=== PATIENT | female | born 1980 | race African-American/Black ===

== ENCOUNTER 2016-06-20 10:00 | Emergency (ER) | payer SELFPAY ==
[~2016-06-20] VITALS: Ht 170.2 cm; Wt 53.5 kg
[2016-06-20] MEDS ORDERED: HYDROCODONE/APAP 5/325MG 1 EACH TABLET PO ONE (10:30)
[2016-06-20] MEDS ORDERED: BACI/NEOM/POLY B OINT PKT 1 UDPKT PACKET TP ONE (10:30)
[2016-06-20] MEDS ORDERED: HYDROCODONE/APAP 5/325MG 1 EACH TABLET ONE (10:44)
[2016-06-20] MEDS ORDERED: BACI/NEOM/POLY B OINT PKT 1 UDPKT PACKET ONE (10:44)
[2016-06-20 12:09] VITALS: BP 132/74
== END 2016-06-20 12:10 | disposition home or self-care (01) ==
LOC: ER 10:02
DX: S92.912A Unspecified fracture of left toe(s), initial encounter for closed fracture (principal); S80.02XA Contusion of left knee, initial encounter; V89.2XXA Person injured in unspecified motor-vehicle accident, traffic, initial encounter; Y93.89 Activity, other specified; Y92.488 Other paved roadways as the place of occurrence of the external cause; Y99.8 Other external cause status
CPT/HCPCS: 73564-TC; 73630-TC; A4606; Z7610

== ENCOUNTER 2017-08-19 23:24 | Emergency (ER) | payer OTHER ==
[~2017-08-19] VITALS: Ht 170.2 cm; Wt 54.4 kg
[2017-08-19 23:45] VITALS: BP 151/104
[2017-08-19] MEDS ORDERED: ONDANSETRON HCL/PF 4 MG/2 ML VIAL ONE (23:53)
[2017-08-19] MEDS ORDERED: MORPHINE SULFATE INJ 4 MG/ML DISP.SYRIN ONE (23:53)
[2017-08-20] MEDS ORDERED: ONDANSETRON HCL/PF 4 MG/2 ML VIAL IM ONE
[2017-08-20] MEDS ORDERED: MORPHINE SULFATE INJ 2 MG/ML DISP.SYRIN IM ONE
--- NOTE | 2017-08-20 01:38 | NUR ---
[facility] CALLED FOR HIGHER LEVEL OF CARE. NO AVAILABLE BEDS.
--- NOTE | 2017-08-20 01:41 | NUR ---
DR DAVIS PAGED PER DR PORTILLO.
--- NOTE | 2017-08-20 01:41 | NUR ---
CALLED [facility] TALKED WITH ALONA GOLDSTEIN AND SHE STATES THEY DO NOT HAVE AN ORAL MAXCIAL FACIAL SURGEON
[2017-08-20] MEDS ORDERED: CEPHALEXIN MONOHYDRATE 500 MG CAPSULE PO ONE ×2 (02:00→02:04)
[2017-08-20] MEDS ORDERED: LIDOCAINE /MPF 1% VIAL 5 ML VIAL ONE (02:02)
[2017-08-20] MEDS ORDERED: HYDROCODONE/APAP 5/325MG 1 EACH TABLET ONE (02:46)
[2017-08-20] MEDS ORDERED: HYDROCODONE/APAP 5/325MG 1 EACH TABLET PO ONE (03:00)
== END 2017-08-20 03:15 | disposition home or self-care (01) ==
LOC: ER 23:27
DX: S02.609A Fracture of mandible, unspecified, initial encounter for closed fracture (principal); S01.81XA Laceration without foreign body of other part of head, initial encounter; V29.9XXA Motorcycle rider (driver) (passenger) injured in unspecified traffic accident, initial encounter; Y93.89 Activity, other specified; Y92.89 Other specified places as the place of occurrence of the external cause; Y99.8 Other external cause status
CPT/HCPCS: 70450-TC; 70486-TC; A4606; A6402; J2270; J2405; J3490; Z7610